=== PATIENT | female | born 2000 | race African-American/Black ===

== ENCOUNTER 2022-05-10 16:54 | Inpatient (IN) | payer OTHER ==
[~2022-05-10] VITALS: Ht 162.6 cm; Wt 68.0 kg
[2022-05-10] MEDS ORDERED: MISOPROSTOL 100MCG TABLET VG SCH (17:45)
[2022-05-10] MEDS ORDERED: AMPICILLIN 2GM in NS 100ML 100 ML IV NR (17:45)
[2022-05-10] MEDS ORDERED: METHYLERGONOVINE MALEATE 0.2 MG/ML IM PRN (17:45)
[2022-05-10] MEDS ORDERED: LIDOCAINE HCL 1% 10 MG/ML 10ML VIAL IJ SCH (17:45)
[2022-05-10] MEDS ORDERED: ACETAMINOPHEN 500MG TABLET PO ONE (18:00)
[2022-05-10 18:07] LABS: BASOPHILS % 0.4 % (0.0-2.0); EOSINOPHILS % 0.1 % (0.0-5.0); HEMATOCRIT. 33.5 % (36.0-48.0); HEMOGLOBIN. 10.8 g/dL (12.0-16.0); LYMPHOCYTES % 8.7 % (20.0-50.0); MEAN CORPUSCULAR HEMOGLOBIN 24.8 pg (28.0-32.0); MEAN CORPUSCULAR VOLUME 77.1 fL (81.0-99.0); MEAN PLATELET VOLUME 11.6 fl (7.4-10.4); MONOCYTES % 3.4 % (2.0-8.0); NEUTROPHILS % 87.4 % (40.0-76.0); PLATELET 210 x1000/uL (130-400); RED BLOOD CELL COUNT 4.34 mill/uL (4.2-5.4); RED CELL DISTRIBUTION WIDTH 17.2 % (11.6-14.6)
[2022-05-10 18:18] LABS: PARTIAL THROMBOPLASTIN TIME 26.3 sec (23.4-31.0); PROTHROMBIN TIME 10.3 sec (9.6-11.0)
[2022-05-10 18:19] LABS: AMYLASE 84 IU/L (25-115)
[2022-05-10] MEDS: OXYTOCIN 30 UNITS/500ML NS PMX 500 ML IV SCH ×2 (18:23→20:59)
[2022-05-10 19:27] LABS: CLARITY URINE CLEAR (CLEAR); COLOR URINE YELLOW (YELLOW); KETONES URINE NEGATIVE (NEGATIVE); LEUKOCYTE ESTERASE URINE NEGATIVE (NEGATIVE); NITRITE URINE NEGATIVE (NEGATIVE); OCCULT BLOOD URINE TRACE (NEGATIVE); PROTEIN URINE TRACE (NEGATIVE); SPECIFIC GRAVITY URINE 1.021 (1.005-1.030); UROBILINOGEN URINE 0.2 E.U./dL (0.2-1.0)
[2022-05-10 19:38] LABS: *AMPHETAMINES SCREEN URINE NEGATIVE (NEGATIVE); *BARBITURATES SCREEN URINE NEGATIVE (NEGATIVE); *BENZODIAZEPINES SCREEN URINE NEGATIVE (NEGATIVE); *COCAINE SCREEN URINE NEGATIVE (NEGATIVE); CANNABINOID URINE SCREEN NEGATIVE (NEGATIVE); METHADONE URINE SCREEN NEGATIVE (NEGATIVE); OPIATES URINE SCREEN NEGATIVE (NEGATIVE); PHENCYCLIDINE URINE SCREEN NEGATIVE (NEGATIVE)
[2022-05-10] MEDS ORDERED: IBUPROFEN 400MG TABLET PO PRN (20:15)
[2022-05-10] MEDS ORDERED: LANOLIN OINT 7GM TUBE TOP PRN (20:15)
[2022-05-10] MEDS ORDERED: DIPHENHYDRAMINE 25MG CAPSULE PO PRN (20:15)
[2022-05-10] MEDS ORDERED: RHO(D) IMMUNE GLOBULIN 300 MCG/SYR IM PRN (20:15)
[2022-05-10] MEDS ORDERED: OXYTOCIN 30 UNITS/500ML NS PMX 500 ML IV SCH (20:15)
[2022-05-10 20:35] VITALS: BP 114/61
[2022-05-10] MEDS: IBUPROFEN 800MG TABLET PO PRN (20:56)
[2022-05-10] MEDS ORDERED: GENTAMICIN 80MG PREMIX 100 ML IV NR (21:00)
[2022-05-11 00:01] VITALS: BP 121/65
[2022-05-11] MEDS: LACTATED RINGERS 1,000 ML IV SCH ×2 (01:53→11:03)
[2022-05-11 04:45] VITALS: BP 116/77
[2022-05-11 07:30] VITALS: BP 95/52
[2022-05-11] MEDS: PRENATAL VIT/FE FUMARATE/FA TABLET PO SCH (08:13)
[2022-05-11 08:54] VITALS: BP 95/52
[2022-05-11] MEDS: CLINDAMYCIN 900 MG PREMIX 50 ML IV SCH ×3 (11:04→21:27)
[2022-05-11 11:29] LABS: BASOPHILS % 0.1 % (0.0-2.0); EOSINOPHILS % 0.7 % (0.0-5.0); HEMOGLOBIN. 9.1 g/dL (12.0-16.0); LYMPHOCYTES % 10.6 % (20.0-50.0); MEAN CORPUSCULAR HEMOGLOBIN 24.4 pg (28.0-32.0); MEAN CORPUSCULAR VOLUME 77.5 fL (81.0-99.0); MEAN PLATELET VOLUME 11.5 fl (7.4-10.4); MONOCYTES % 10.4 % (2.0-8.0); NEUTROPHILS % 78.2 % (40.0-76.0); PLATELET 166 x1000/uL (130-400); RED BLOOD CELL COUNT 3.75 mill/uL (4.2-5.4); RED CELL DISTRIBUTION WIDTH 16.5 % (11.6-14.6)
[2022-05-11 11:46] LABS: CHLORIDE 110 mEq/L (98-107)
[2022-05-11] MEDS: IBUPROFEN 800MG TABLET PO PRN ×2 (12:27→19:02)
[2022-05-11] MEDS: GENTAMICIN 80MG PREMIX 100 ML IV SCH ×2 (12:43→21:00)
[2022-05-11 17:00] VITALS: BP 122/76
[2022-05-11 19:30] VITALS: BP 117/77
[2022-05-12] MEDS: CLINDAMYCIN 900 MG PREMIX 50 ML IV SCH (03:00)
[2022-05-12 04:00] VITALS: BP 113/76
[2022-05-12] MEDS: GENTAMICIN 80MG PREMIX 100 ML IV SCH (05:02)
[2022-05-12 07:45] VITALS: BP 122/67
[2022-05-12] MEDS: PRENATAL VIT/FE FUMARATE/FA TABLET PO SCH (08:22)
[2022-05-15 04:17] LABS: HIV SCREEN 4G Non Reactive (Non Reactive)
== END 2022-05-12 11:10 | disposition home or self-care (01) | DRG 560 ==
LOC: 8 EST LDRP 16:54 → OBSVTOIN 16:54 → 8EST 20:16
PROVIDERS: ADMIT Obstetrics & Gynecology; ATTEND Obstetrics & Gynecology
PROC: 10E0XZZ Delivery of Products of Conception, External Approach (ICD-10-PCS; principal; 2022-05-10)
DX: O60.14X0 Preterm labor third trimester with preterm delivery third trimester, not applicable or unspecified (principal); Z37.0 Single live birth; O41.1230 Chorioamnionitis, third trimester, not applicable or unspecified; Z20.822 Contact with and (suspected) exposure to COVID-19; O69.81X0 Labor and delivery complicated by cord around neck, without compression, not applicable or unspecified; O42.013 Preterm premature rupture of membranes, onset of labor within 24 hours of rupture, third trimester; Z3A.31 31 weeks gestation of pregnancy
CPT/HCPCS: 36415; 80048; 80305; 81003; 82150; 85025; 86592; 86762; 86850; 86900; 87340; 87389; 87426; 99281; J0290; J1580; J3490; J7120; J2590